=== PATIENT | male | born 1975 | race Two or more races ===

== ENCOUNTER 2024-01-25 04:38 | Emergency (ER) | payer MEDICAID, OTHER ==
[~2024-01-25] VITALS: Ht 172.7 cm; Wt 74.8 kg
[2024-01-25 04:48] VITALS: BP 113/78; PULSE 87; RESP 14; TEMP 97.9; O2SAT 99
[2024-01-25] MEDS ORDERED: CYCL-837 PO (07:08)
[2024-01-25] MEDS ORDERED: IBUP-1456 PO (07:08)
[2024-01-25] MEDS: KETOROLAC TROMETH 30 MG/ML 1ML VIAL IM ONE (07:19)
== END 2024-01-25 07:20 | disposition home or self-care (01) ==
LOC: ER 04:38
DX: S20.211A Contusion of right front wall of thorax, initial encounter (principal); W18.09XA Striking against other object with subsequent fall, initial encounter; Y93.89 Activity, other specified; Y92.89 Other specified places as the place of occurrence of the external cause; Y99.8 Other external cause status
CPT/HCPCS: 71111; 96372; 99283; J1885